=== PATIENT | male | born 1950 | race Caucasian/White ===

== ENCOUNTER 2021-03-23 08:44 | Day surgery (SDC) | payer MEDICARE, OTHER ==
[~2021-03-23] VITALS: Ht 168 cm; Wt 118.0 kg
[~2021-03-23 08:44] MED LIST: AMLODIPINE BESYL5 MG PO; ASPIRIN EC81 M1 PO; COMBIVENT RESPIM4 GM INH; DULERA 200 MCG8.8 GM INH; FENOFIBRATE145 MG PO; HYDROCODON-ACE1 EAC2 PO; METFORMIN HCL1000 MG PO; MONTELUKAST SOD10 MG PO; OMEPRAZOLE40 MG PO; PAROXETINE HCL40 MG PO; PREGABALIN150 MG PO; TOPROL XL 50 MG50 MG PO
--- NOTE | 2021-03-23 13:25 | NUR ---
PT. HAD A LTKR THIS DATE. PT. WILL RETURN HOME WITH SPOUSE.
[2021-03-24 07:16] LABS: BASOPHIL 0.1 % (0-2); EOSINOPHIL 0 % (0-7); HCT 33.3 % (42.0-52.0); HGB 10.8 g/dl (13.2-18.0); LYMPHOCYTE 5.9 % (15-48); MCH 30.7 pg (25.0-31.0); MCHC 32.4 g/dL (32.0-36.0); MCV 94.6 fL (78.0-100.0); MONOCYTE 4.2 % (0-12); MPV 11.1 fL (6.0-9.5); NEUTROPHIL 89.3 % (41-80); NRBC 0; PLT 150 K/uL (150-400); RBC 3.52 M/uL (4.70-6.00); RDW 13.4 % (11.5-14.0); WBC 14.1 K/uL (4.0-10.5)
[2021-03-24 09:13] LABS: BUN/CREAT RATIO (CALC) 28.8 RATIO; CREATININE 0.8 mg/dL (0.67-1.17); POTASSIUM 4.2 mmol/L (3.5-5.1)
[2021-03-24] MEDS ORDERED: XARELTO10 MG PO (09:29)
[2021-03-24] MEDS ORDERED: OXYCODONE-ACET1 EAC1 PO (09:29)
[2021-03-24] MEDS ORDERED: FEOSOL325 MG PO (09:29)
--- NOTE | 2021-03-24 10:45 | NUR ---
PT TO D/C HOME THIS DATE. PT. HAS A ROLLING WALKER. [facility] WILL PROVIDE PT SERVICES. PER PAN RAMOS [facility] IN [place] [phone]. PT. COPAY FOR NICHOLAS IS $3.10.
== END 2021-03-24 11:00 | disposition home health service (06) ==
LOC: FMS 08:44 → FAS 08:44 → FMS 12:35 → FAS 03-24 11:00
PROVIDERS: Legal Medicine
DX: M17.12 Unilateral primary osteoarthritis, left knee (principal); E11.9 Type 2 diabetes mellitus without complications; I25.10 Atherosclerotic heart disease of native coronary artery without angina pectoris; K21.9 Gastro-esophageal reflux disease without esophagitis; G89.18 Other acute postprocedural pain; I25.2 Old myocardial infarction; E78.00 Pure hypercholesterolemia, unspecified; G47.33 Obstructive sleep apnea (adult) (pediatric); J45.909 Unspecified asthma, uncomplicated; I10 Essential (primary) hypertension; Z96.651 Presence of right artificial knee joint; Z79.82 Long term (current) use of aspirin; Z79.84 Long term (current) use of oral hypoglycemic drugs; Z79.899 Other long term (current) drug therapy
CPT/HCPCS: 36415; 73560; 80048; 85025; 86850; 86900; 86901; 94010; 97110; 97162; 97166; 97530-GP; 97535; C1713; C1776; J0171; J0697; J1100; J1170; J1885; J2001; J2250; J2270; J2405; J2704; J2795; J3010; J7120